=== PATIENT | male | born 1985 | race American Indian/Alaskan Native ===

== ENCOUNTER 2017-10-16 02:11 | Emergency (ER) | payer SELFPAY ==
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
[2017-10-16 04:12] VITALS: BP 138/86
== END 2017-10-16 04:04 | disposition home or self-care (01) ==
LOC: ED 02:11
DX: T22.251D Burn of second degree of right shoulder, subsequent encounter (principal); T22.252D Burn of second degree of left shoulder, subsequent encounter; T22.21 Burn of second degree of forearm; Z76.0 Encounter for issue of repeat prescription; X08.8XXD Exposure to other specified smoke, fire and flames, subsequent encounter
CPT/HCPCS: 99281